=== PATIENT | male | born 1980 | race Caucasian/White ===

== ENCOUNTER 2024-06-07 13:20 | Emergency (ER) | payer BC, OTHER ==
[2024-06-07 13:31] VITALS: BP 137/81; PULSE 92; RESP 18; TEMP 98.8; BMI 50.1
[2024-06-07] MEDS ORDERED: predniSONE 20 MG TABLET (UD) ONE (13:37)
[2024-06-07] MEDS ORDERED: ALBUTEROL SO4 2.5/IPRATROPIUM 0.5 INH SOL 3 ML VIAL.NEB. NEB ONE (13:39)
[2024-06-07] MEDS: predniSONE 20 MG TABLET (UD) PO ONE (13:57)
[2024-06-07] MEDS: ALBUTEROL SO4 2.5/IPRATROPIUM 0.5 INH SOL 3 ML VIAL.NEB. NEB ONE (13:57)
== END 2024-06-07 15:36 | disposition home or self-care (01) ==
LOC: FER 13:20
PROC: 3E0F7GC Introduction of Other Therapeutic Substance into Respiratory Tract, Via Natural or Artificial Opening (ICD-10-PCS; principal; 2024-06-07)
DX: R05.9 Cough, unspecified (principal); R09.81 Nasal congestion; J45.21 Mild intermittent asthma with (acute) exacerbation; F17.210 Nicotine dependence, cigarettes, uncomplicated; Z20.822 Contact with and (suspected) exposure to COVID-19
CPT/HCPCS: 0241U-QW; 71046-TC-FY; 99284-25